=== PATIENT | female | born 1980 | race Caucasian/White ===

== ENCOUNTER → 2016-12-17 | Outpatient (CLI) | payer MEDICARE, OTHER | LOC: HPND 11:00 | PROVIDERS: ATTEND Obstetrics & Gynecology | DX: O09.522 Supervision of elderly multigravida, second trimester (principal); O99.352 Diseases of the nervous system complicating pregnancy, second trimester | CPT/HCPCS: 76805 ==

== ENCOUNTER 2017-02-28 22:08 | Emergency (ER) | payer MEDICARE, MEDICAID ==
[2017-02-28] MEDS ORDERED: LACTATED RINGER'S 1000 ML INJ 1,000 ML IV SCH (22:49)
--- NOTE | 2017-02-28 22:58 | PD ---
HPI Chief Complaint spotting Date Seen: Feb 28, 2017 Time Seen: 22:51 Travel History International Travel<30 Days: No Contact w/Intl Traveler<30Days: No Known Affected Area: No History of Present Illness HPI 36y/o @ 34.0 wks. She has limited PNC at [facility] (not seen in over 2 months). She presents for evaluation of spotting. She states that she had sex 3 days ago and experienced red blood like a period. Over the past 3 days she only needed a total of 2 pads and it turned to brown spotting. She states that tonight she started cramping. No LOF or ctx. +FM. Weeks Gestation: 34 Para: 1 : 3 History Past Medical History Narrative Medical scoliosis compressed spinal disc fibromyalgia Obstetric History Obstetric History x1 TAB x1 Past Surgical History Narrative Surgical breast augmentation Family History Family History: Negative Social History Alcohol Use: No Tobacco Use: Yes (occasional) Substance Abuse: Yes (occasional MJ) Allergies-Medications (Allergen,Severity, Reaction): Coded Allergies: codeine (Unverified Adverse Reaction, Intermediate, ABD CRAMPING, 12/06/16) Home Meds No Active Prescriptions or Reported Meds Review of Systems Except as stated in HPI: all other systems reviewed are Neg Physical Exam Narrative GENERAL: Well-nourished, well-developed patient. SKIN: Warm and dry. HEAD: Normocephalic and atraumatic. EYES: No scleral icterus. No injection or drainage. ENT: No nasal drainage noted. Mucous membranes pink. Airway patent. ABDOMEN/GI: Abdomen soft, non-tender EXTREMITIES: No cyanosis or edema. NEUROLOGICAL: Awake and alert. Motor and sensory grossly within normal limits. FHT's: 140s, +accels, no decels, moderate variability, reactive TOCO: occasional ctx with background irritability CERVIX: 3/50/-3 Data Data Vital Signs Reviewed: Yes Orders Orders Vital Signs (Adult) .ON ADMISSION (02/28/17 22:49) ^ Labor Status (02/28/17 22:49) Urinalysis - C+S If Indicated (02/28/17 22:49) ^ Non Stress Test (02/28/17 22:49) Lactated Ringer's 1000 Ml Inj (Lr 1000 M (02/28/17 22:49) Ob/Psych Drug Screen, Urine (02/28/17 22:49) MDM Plan 36y/o @ 34.0wks with post coital spotting. -- cvx 3cm multiparous -- small amt of brown old blood on glove -- toco irritable with some ctx -- IVF bolus, UA, UDS Dispo: Diagnosis Diagnosis: Primary Impression: 34 weeks gestation of Additional Impressions: Spotting affecting in third trimester Cramping affecting , antepartum AMA (advanced maternal age) multigravida 35+ Seizure disorder during Scoliosis Fibromyalgia Scripts No Active Prescriptions or Reported Meds Carola Del Rio MD Feb 28, 2017 22:58
[2017-02-28 23:31] LABS: BLOOD, URINE NEG (NEG); COMMENT (UR) CULT NOT INDICATED; CULTURE IF INDICATED CULT NOT INDICATED; GLUCOSE,URINE NEG (NEG); KETONE, URINE NEG (NEG); MUCUS URINE FEW /lpf (OCC); NITRITE,URINE NEG (NEG); SQUAMOUS EPITHELIAL CELL URINE <1 /hpf (0-5); URINE COLOR LIGHT-YELLOW (YELLW/STRAW)
[2017-02-28 23:45] VITALS: RESP 18
[2017-03-08 12:13] LABS: BATH SALTS (MDPV) UR NEG (NEG); ECSTASY (MDMA) UR NEG (NEG); HEROIN (6-ACETYLMORPHINE) UR NEG (NEG); K2 SPICE UR NEG (NEG); OBGABAPENTIN UR NEG (NEG); OBMETHADONE UR NEG (NEG); PHENCYCLIDINE URINE NEG (NEG)
[2017-03-08 12:14] LABS: OBHYDROMORPHONE U NEG (NEG)
== END 2017-03-01 00:02 | disposition home or self-care (01) ==
LOC: HOBED 22:08
DX: O26.853 Spotting complicating pregnancy, third trimester (principal); O26.893 Other specified pregnancy related conditions, third trimester; R10.9 Unspecified abdominal pain; O09.523 Supervision of elderly multigravida, third trimester; O99.89 Other specified diseases and conditions complicating pregnancy, childbirth and the puerperium; G40.909 Epilepsy, unspecified, not intractable, without status epilepticus; M41.9 Scoliosis, unspecified; M79.7 Fibromyalgia; O99.333 Smoking (tobacco) complicating pregnancy, third trimester; Z3A.34 34 weeks gestation of pregnancy
CPT/HCPCS: 80307; 81001; 96360; 99284; G0481; J7120

== ENCOUNTER 2017-03-30 04:51 | Inpatient (IN) | payer MEDICARE, MEDICAID ==
[2017-03-30] VITALS (29 sets, daily range): BP systolic 84–157; BP diastolic 57–113; PULSE 59–108; RESP 18–20; TEMP 97.7–98.2
[~2017-03-30] VITALS: Ht 165.1 cm; Wt 59.0 kg
--- NOTE | 2017-03-30 06:37 | PD ---
HPI Chief Complaint Leaking fluid, contractions Date Seen: Mar 30, 2017 Time Seen: 06:31 Travel History International Travel<30 Days: No Contact w/Intl Traveler<30Days: No Known Affected Area: No History of Present Illness HPI 36-year-old 2 para 1 at 38+ weeks gestation by 20 week ultrasound with an EDC of April 11. She reports leaking fluid since about 3:30 this morning. She notes increasing contraction activity. History Past Medical History Narrative Medical Seizure disorder for which she uses Keppra. She has not taken this for 3 weeks. She reports her last grand mal seizure 1 year ago. Chronic pain for which she uses lorazepam, baclofen, Fioricet, hydrocodone Obstetric History Obstetric History 1 prior 36 week vaginal delivery Past Surgical History Narrative Surgical Breast augmentation Family History Family History: Negative Social History Alcohol Use: No Tobacco Use: Yes (one cigarette per day) Substance Abuse: No Allergies-Medications (Allergen,Severity, Reaction): Coded Allergies: codeine (Unverified Adverse Reaction, Intermediate, ABD CRAMPING, 12/06/16) Home Meds No Active Prescriptions or Reported Meds Review of Systems Except as stated in HPI: all other systems reviewed are Neg Physical Exam Narrative GENERAL: Well-nourished, well-developed patient. SKIN: Warm and dry. HEAD: Normocephalic and atraumatic. EYES: No scleral icterus. No injection or drainage. ENT: No nasal drainage noted. Mucous membranes pink. Airway patent. NECK: Supple, trachea midline. No JVD. CARDIOVASCULAR: Regular rate and rhythm without murmurs, gallops, or rubs. RESPIRATORY: Breath sounds equal bilaterally. No accessory muscle use. ABDOMEN/GI: Abdomen soft, non-tender, bowel sounds present, no rebound, no guarding Gravid to [-] weeks size Fundal Height: [36-] GENITOURINARY: External Genitalia: intact and normal in appearance BUS glands: [-Negative] Cervix: [-] Dilatation: [3-] Effacement: [50-] Station: [-Minus 3] Presentation: [Vertex-] Membranes: [ ruptured] Uterine Contractions: [Mild irregular-] FHT's: Category: [-1] Baseline: [-] Reactive: [-] Variability: [-] Decels: [-] EXTREMITIES: No cyanosis or edema. BACK: Nontender without obvious deformity. No CVA tenderness. NEUROLOGICAL: Awake and alert. Motor and sensory grossly within normal limits. Five out of 5 muscle strength in all muscle groups. Normal speech. Data Data Vital Signs Reviewed: Yes Orders Orders Ob (2e) Additional Admit Info (03/30/17 05:24) MDM Medical Record Reviewed: Yes Narrative Course / MDM Assessment: 36-year-old at 38 weeks by midtrimester ultrasound with spontaneous rupture membranes, opioid dependence, minimal care Plan: labs Admit for labor management Scripts No Active Prescriptions or Reported Meds Jimenez Pagan MD Mar 30, 2017 06:37
[2017-03-30] MEDS ORDERED: LACTATED RINGER'S 1000 ML INJ 1,000 ML IV PRN (06:38)
--- NOTE | 2017-03-30 06:44 | HHI.HP ---
History & Physical H&P Patient Name: Anju Rivera Unit Number: [id number] Date of : 1980 Patient Status: Admitted Inpatient Attending Doctor: Jimenez Pagan MD HPI HPI Chief Complaint Leaking fluid, contractions Date Seen: Mar 30, 2017 Time Seen: 06:31 Travel History International Travel<30 Days: No Contact w/Intl Traveler<30Days: No Known Affected Area: No History of Present Illness HPI 36-year-old 2 para 1 at 38+ weeks gestation by 20 week ultrasound with an EDC of April 11. She reports leaking fluid since about 3:30 this morning. She notes increasing contraction activity. History (Limited) History Past Medical History Narrative Medical Seizure disorder for which she uses Keppra. She has not taken this for 3 weeks. She reports her last grand mal seizure 1 year ago. Chronic pain for which she uses lorazepam, baclofen, Fioricet, hydrocodone Obstetric History Obstetric History 1 prior 36 week vaginal delivery Past Surgical History Narrative Surgical Breast augmentation Family History Family History: Negative Social History Alcohol Use: No Tobacco Use: Yes (one cigarette per day) Substance Abuse: No Allergies-Medications Allergies-Medications (Allergen,Severity, Reaction): Coded Allergies: codeine (Unverified Adverse Reaction, Intermediate, ABD CRAMPING, 12/06/16) Home Meds No Active Prescriptions or Reported Meds ROS Review of Systems Except as stated in HPI: all other systems reviewed are Neg Physical Exam Physical Exam Narrative GENERAL: Well-nourished, well-developed patient. SKIN: Warm and dry. HEAD: Normocephalic and atraumatic. EYES: No scleral icterus. No injection or drainage. ENT: No nasal drainage noted. Mucous membranes pink. Airway patent. NECK: Supple, trachea midline. No JVD. CARDIOVASCULAR: Regular rate and rhythm without murmurs, gallops, or rubs. RESPIRATORY: Breath sounds equal bilaterally. No accessory muscle use. ABDOMEN/GI: Abdomen soft, non-tender, bowel sounds present, no rebound, no guarding Gravid to [-] weeks size Fundal Height: [36-] GENITOURINARY: External Genitalia: intact and normal in appearance BUS glands: [-Negative] Cervix: [-] Dilatation: [3-] Effacement: [50-] Station: [-Minus 3] Presentation: [Vertex-] Membranes: [ ruptured] Uterine Contractions: [Mild irregular-] FHT's: Category: [-1] Baseline: [-] Reactive: [-] Variability: [-] Decels: [-] EXTREMITIES: No cyanosis or edema. BACK: Nontender without obvious deformity. No CVA tenderness. NEUROLOGICAL: Awake and alert. Motor and sensory grossly within normal limits. Five out of 5 muscle strength in all muscle groups. Normal speech. Data Data Data Vital Signs Reviewed: Yes Orders Orders Ob (2e) Additional Admit Info (03/30/17 05:24) MDM MDM Medical Record Reviewed: Yes Narrative Course / MDM Assessment: 36-year-old at 38 weeks by midtrimester ultrasound with spontaneous rupture membranes, opioid dependence, minimal care Plan: labs Admit for labor management Scripts No Active Prescriptions or Reported Meds Jimenez Pagan MD Mar 30, 2017 06:37 Jimenez Pagan MD Mar 30, 2017 06:44
[2017-03-30] MEDS ORDERED: LIDOCAINE HCL 1% 50 ML VIAL I-DERMAL PRN (06:45)
[2017-03-30] MEDS ORDERED: OXYTOCIN 30 UNITS-500ML PREMIX 500 ML IV ONE (06:45)
[2017-03-30] MEDS ORDERED: ONDANSETRON HCL 4 MG/2 ML VIAL IV PUSH PRN (06:45)
[2017-03-30] MEDS ORDERED: CITRIC ACID-SODIUM CITRATE LIQ 30 ML UDC PO SCH (06:45)
[2017-03-30] MEDS ORDERED: LIDOCAINE HCL 1% 50 ML VIAL INFIL PRN (06:45)
[2017-03-30] MEDS ORDERED: SODIUM CHLORID 0.9% 500 ML INJ 500 ML IV PRN (06:45)
[2017-03-30] MEDS ORDERED: MINERAL OIL 10 ML VIAL TOPICAL PRN (06:45)
[2017-03-30] MEDS ORDERED: SODIUM CHLOR 0.9% 1000 ML INJ 1,000 ML IV PRN (06:58)
[2017-03-30 07:02] LABS: AUTOMATED NEUTROPHIL # 4.3 TH/MM3 (1.8-7.7); BASOPHIL % 0.2 % (0.0-2.0); EOSINOPHIL # 0.1 TH/MM3 (0-0.4); EOSINOPHIL % 1.7 % (0.0-4.0); HEMATOCRIT 32.2 % (35.0-46.0); HEMOGLOBIN 11.2 GM/DL (11.6-15.3); LYMPH % 26.3 % (9.0-44.0); LYMPHOCYTE # 1.8 TH/MM3 (1.0-4.8); MEAN CELL VOLUME 87.3 FL (80.0-100.0); MEAN CORPUSCULAR HEMOGLOBIN 30.4 PG (27.0-34.0); MEAN CORPUSCULAR HGB CONC 34.8 % (32.0-36.0); MEAN PLATELET VOLUME 6.8 FL (7.0-11.0); MONO % 8.4 % (0.0-8.0); MONOCYTE # 0.6 TH/MM3 (0-0.9); NEUT % 63.4 % (16.0-70.0); PLATELET COUNT 252 TH/MM3 (150-450); RED BLOOD COUNT 3.69 MIL/MM3 (4.00-5.30); RED CELL DISTRIBUTION WIDTH 14.1 % (11.6-17.2); WHITE BLOOD COUNT 6.7 TH/MM3 (4.0-11.0)
[2017-03-30] MEDS ORDERED: [UNRECOGNIZED DRUG - OTHER] PO (07:27)
[2017-03-30] MEDS ORDERED: LEVE500 PO (07:29)
[2017-03-30] MEDS ORDERED: BACL10TA PO (07:29)
[2017-03-30] MEDS ORDERED: BUTA1CAP PO (07:29)
[2017-03-30] MEDS ORDERED: LORA0.5T PO (07:32)
[2017-03-30] MEDS ORDERED: ZANT150T2 PO (07:32)
[2017-03-30] MEDS ORDERED: HYDR-3583 PO (07:33)
[2017-03-30 07:40] LABS: BILIRUBIN, URINE NEG (NEG); BLOOD, URINE MOD (NEG); GLUCOSE,URINE NEG (NEG); KETONE, URINE NEG (NEG); MUCUS URINE FEW /lpf (OCC); NITRITE,URINE NEG (NEG); SQUAMOUS EPITHELIAL CELL URINE 6 /hpf (0-5); URINE COLOR YELLOW (YELLW/STRAW); URINE LEUKOCYTE ESTERASE SMALL (NEG)
[2017-03-30] MEDS: LACTATED RINGER'S 1000 ML INJ 1,000 ML IV SCH ×3 (08:50→21:16)
[2017-03-30] MEDS ORDERED: fentaNYL 2MCG-BUPIV 0.125% INJ 100 ML ONE (10:08)
[2017-03-30] MEDS ORDERED: ePHEDrine/NS 25 MG/5 ML SYRINGE ONE (10:09)
[2017-03-30] MEDS ORDERED: WITCH HAZEL 50%/GLYCERIN 12.5% 40 PAD JAR TOPICAL PRN (11:45)
[2017-03-30] MEDS ORDERED: OXYTOCIN 30 UNITS-500ML PREMIX 500 ML IV SCH (11:45)
[2017-03-30] MEDS ORDERED: ALUMINUM/MAGNESIUM/SIMETH 30 ML CUP PO PRN (11:45)
--- NOTE | 2017-03-30 11:46 | PD.OB.DELI ---
Weeks gestation: 38 Pt started active labor?: Yes Medical induction of labor?: No Artificial rupture of membrane: No Anesthesia: Epidural Episiotomy: None Vaginal Delivery: Normal, Spontaneous Presentation: Occiput anterior Nuchal Cord: None Delayed cord clamping (45 sec): Yes Infant: Female Delivery date: Mar 30, 2017 Delivery time: 11:35 One Minute : 9 Five Minute : 9 Weight: pending Placenta: Spontaneous delivery, Intact, 3 vessel cord Laceration: Episiotomy Estimated blood loss: 150cc Carola Del Rio MD Mar 30, 2017 11:46
[2017-03-30] MEDS: IBUPROFEN 800 MG TAB PO PRN ×2 (12:46→21:28)
[2017-03-30] MEDS ORDERED: fentaNYL 2MCG-BUPIV 0.125% 100 ML EPIDURAL SCH (13:00)
[2017-03-30] MEDS ORDERED: ePHEDrine/NS 25 MG/5 ML SYRINGE IV PUSH PRN (13:00)
[2017-03-30] MEDS ORDERED: DO NOT ADMINISTER ANTICOAGULANTS PRN (13:00)
[2017-03-30] MEDS ORDERED: NO SYSTEM NARCOTICS PRN (13:00)
[2017-03-30] MEDS ORDERED: DIPHTH/TETANUS/ACEL PERTUSSIS (BOOSTER) 0.5 ML VIAL/PFS IM ONE (16:00)
[2017-03-30] MEDS ORDERED: MEASLES, MUMPS, RUBELLA VACCINE 0.5 ML VIAL SQ ONE (16:00)
[2017-03-30] MEDS ORDERED: ZOLPIDEM TARTRATE 5 MG TAB PO PRN (21:00)
[2017-03-30] MEDS: ACETAMINOPHEN 325 MG TAB PO PRN (21:27)
[2017-03-31] MEDS: LACTATED RINGER'S 1000 ML INJ 1,000 ML IV SCH ×2 (02:59→15:01)
[2017-03-31] MEDS: ACETAMINOPHEN 325 MG TAB PO PRN ×2 (05:39→16:45)
[2017-03-31] MEDS: IBUPROFEN 800 MG TAB PO PRN ×2 (05:39→15:02)
--- NOTE | 2017-03-31 07:37 | HHI.OB ---
Subjective Post Day: 1 Remarks Patient seen and examined this morning. AFVSS overnight. day #1. Patient reports some abdominal cramping, states her pain is tolerable. Decreased lochia. Denies dysuria. No breast tenderness. No nausea or vomiting. Endorses flatus. No issues voiding. Ambulating well. Denies fevers, calf pain, shortness of breath, or cough. She otherwise has no other complaints or concerns this morning. Objective Vitals/I&O Vital Signs Date Time Temp Pulse Resp B/P (MAP) Pulse Ox O2 Delivery O2 Flow Rate FiO2 03/30/17 18:58 98.0 88 20 141/83 (102) 03/30/17 12:45 66 138/89 (105) 03/30/17 12:30 71 123/88 (100) 03/30/17 12:10 82 03/30/17 12:05 59 130/76 (94) 03/30/17 12:02 73 125/72 (89) 03/30/17 12:00 98.2 18 03/30/17 11:57 71 122/63 (82) 03/30/17 11:11 61 127/57 (80) 03/30/17 11:05 83 129/85 (100) 03/30/17 11:05 85 03/30/17 11:00 108 03/30/17 11:00 75 137/96 (110) 03/30/17 10:56 87 130/81 (97) 03/30/17 10:55 86 03/30/17 10:51 87 84/73 (77) 03/30/17 10:50 89 03/30/17 10:45 84 126/80 (95) 03/30/17 10:45 90 03/30/17 10:40 88 140/88 (105) 03/30/17 10:40 97 03/30/17 10:36 80 112/91 (98) 03/30/17 10:35 74 03/30/17 10:30 72 126/83 (97) 03/30/17 10:30 72 03/30/17 10:25 66 124/70 (88) 03/30/17 10:25 68 03/30/17 10:22 75 129/70 (89) 03/30/17 10:20 100 149/87 (107) 03/30/17 10:20 85 03/30/17 10:19 107 157/105 (122) 03/30/17 10:18 154/113 (127) 03/30/17 10:18 100 03/30/17 10:15 93 03/30/17 10:07 65 137/87 (104) 03/30/17 08:15 97.7 18 03/30/17 08:08 66 132/83 (99) Objective Remarks GENERAL: Well-nourished, well-developed patient. CARDIOVASCULAR: Regular rate and rhythm without murmurs, gallops, or rubs. RESPIRATORY: Breath sounds equal bilaterally. No accessory muscle use. ABDOMEN/GI: Abdomen soft, non-tender. Fundus: Firm, non-tender at umbilicus. GENITOURINARY: Light to moderate bleeding. EXTREMITIES: No cyanosis or edema, non-tender, without signs of DVT. Medications and IVs Current Medications Medications (Trade) Dose Ordered Sig/[place] Route Start Time Stop Time Status Last Admin Lactated Ringer's 1,000 ml @ 125 mls/hr Q8H IV 03/30/17 06:38 03/30/17 08:50 Lactated Ringer's 1,000 ml @ 3,000 mls/hr Q20M PRN IV 03/30/17 06:38 Sodium Chloride 1,000 ml @ 100 mls/hr Q10H PRN IV 03/30/17 06:58 (Xylocaine 1% Inj (50 ml)) 0.1 ml UNSCH X1 PRN I-DERMAL 03/30/17 06:45 04/02/17 06:44 (Bicitra Liq) 30 ml RE[employer] SHEET PO 03/30/17 06:45 04/03/17 06:44 (Zofran Inj) 4 mg Q6H PRN IV PUSH 03/30/17 06:45 (fentaNYL INJ) 50 mcg Q1H PRN IV PUSH 03/30/17 06:45 (fentaNYL INJ) 100 mcg Q1H PRN IV PUSH 03/30/17 06:45 03/30/17 08:51 (Xylocaine 1% Inj (50 ml)) 10 ml UNSCH X1 PRN INFIL 03/30/17 06:45 04/01/17 06:44 (Muri-Lube Oil) 10 ml UNSCH PRN TOPICAL 03/30/17 06:45 (Tylenol) 650 mg Q4H PRN PO 03/30/17 11:45 03/31/17 05:39 (Motrin) 800 mg Q8H PRN PO 03/30/17 11:45 03/31/17 05:39 (Tucks Pads) 1 applic QID PRN TOPICAL 03/30/17 11:45 (Ambien) 5 mg HS PRN PO 03/30/17 21:00 (Mag-Al Plus Susp Liq) 15 ml Q8H PRN PO 03/30/17 11:45 Miscellaneous Information No systemic narcotics to be given except... UNSCH PRN .XX 03/30/17 13:00 03/31/17 12:59 Miscellaneous Information DO NOT ADMINISTER ANY ANTICOAGUL... UNSCH PRN .XX 03/30/17 13:00 03/31/17 12:59 Fentanyl/ Bupivacaine HCl 100 ml @ 0 mls/hr TITRATE EPIDURAL 03/30/17 13:00 (ePHEDrine/NS 25 MG/5 ML SYR) 10 mg UNSCH PRN IV PUSH 03/30/17 13:00 03/31/17 12:59 Assessment/Plan Assessment and Plan 36 year old now PPD#1. 1. Care - AFVSS - Encouraged OOB, as tolerated - Motrin prn pain - Advised pelvic rest x 6 weeks - Contraception: Discussed with patient this AM, patient elected to receive Depo -Provera IM - Will f/u with OB provider within 6 weeks [facility] Hospitalist Fabiano Hdz MD R2 Mar 31, 2017 07:37
[2017-03-31 08:00] VITALS: BP 121/84; PULSE 68; RESP 20; TEMP 96.1; O2SAT 0
--- NOTE | 2017-03-31 08:46 | HHI.DCPOC ---
Discharge Care Plan Diagnosis: (1) care following vaginal delivery Report Symptoms to Your Doctor -Temperature above 100.5 degrees -Redness, of incision or excessive or foul smelling drainage -Unusual pain or calf pain -Increased vaginal bleeding -Painful or difficulty urinating -Feelings of extreme sadness or anxiety after 2 weeks Goals to Promote Your Health * To maintain your health at the optimal level, follow up with your OB provider within 6 weeks after hospital discharge. Directions to Meet Your Goals Take your medications as prescribed Follow your dietary instruction Follow activity as directed Ensure plenty of rest for recovery Drink fluids for hydration Keep your appointments as scheduled Take your immunizations and boosters as scheduled If your symptoms worsen call your PCP, if no PCP go to Urgent Care Center or Emergency Room Smoking is Dangerous to Your Health. Avoid second hand smoke Call the 24-hour crisis hotline for domestic abuse at Fabiano Hdz MD R2 Mar 31, 2017 08:46
[2017-03-31] MEDS ORDERED: medroxyPROGESTERone ACETATE SUSP 150 MG/ML SYRINGE IM ONE (09:00)
[2017-03-31 19:45] VITALS: BP 132/89; PULSE 82; RESP 18; TEMP 97.6
[2017-04-01] MEDS: IBUPROFEN 800 MG TAB PO PRN ×2 (03:43→11:54)
[2017-04-01] MEDS: LACTATED RINGER'S 1000 ML INJ 1,000 ML IV SCH (08:12)
--- NOTE | 2017-04-01 08:17 | HHI.OB ---
Subjective Post Day: 2 Remarks Patient is a 36-year-old delivered at 38 weeks and 2 days. Patient is day 2 after spontaneous vaginal delivery. Patient's pain is well- controlled. Patient reports minimal bleeding. Patient reports eating and drinking without any nausea or vomiting. Patient has passed gas and has had two bowel movements. Patient denies chest pain and shortness of breath. Patient has been ambulating; she denies lower extremity pain. Patient has decided to bottle- feed. (Estephania Valdez MD R1) Remarks Patient seen and evaluated with resident under direct supervision, agree with assessment and plan. (Jimenez Pagan MD) Objective Vitals/I&O Vital Signs Date Time Temp Pulse Resp B/P (MAP) Pulse Ox O2 Delivery O2 Flow Rate FiO2 03/31/17 19:45 97.6 82 18 132/89 (103) Objective Remarks GENERAL: Well-nourished, well-developed patient. CARDIOVASCULAR: Regular rate and rhythm without murmurs, gallops, or rubs. RESPIRATORY: Breath sounds equal bilaterally. No accessory muscle use. ABDOMEN/GI: Abdomen soft, minimally tender. Fundus: Firm, minimally tender at umbilicus. GENITOURINARY: Light to moderate bleeding. EXTREMITIES: No cyanosis or edema, non-tender, without signs of DVT. Medications and IVs Current Medications Medications (Trade) Dose Ordered Sig/[place] Route Start Time Stop Time Status Last Admin Lactated Ringer's 1,000 ml @ 125 mls/hr Q8H IV 03/30/17 06:38 03/30/17 08:50 Lactated Ringer's 1,000 ml @ 3,000 mls/hr Q20M PRN IV 03/30/17 06:38 Sodium Chloride 1,000 ml @ 100 mls/hr Q10H PRN IV 03/30/17 06:58 (Xylocaine 1% Inj (50 ml)) 0.1 ml UNSCH X1 PRN I-DERMAL 03/30/17 06:45 04/02/17 06:44 (Bicitra Liq) 30 ml [employer] PO 03/30/17 06:45 04/03/17 06:44 (Zofran Inj) 4 mg Q6H PRN IV PUSH 03/30/17 06:45 (fentaNYL INJ) 50 mcg Q1H PRN IV PUSH 03/30/17 06:45 (fentaNYL INJ) 100 mcg Q1H PRN IV PUSH 03/30/17 06:45 03/30/17 08:51 (Muri-Lube Oil) 10 ml UNSCH PRN TOPICAL 03/30/17 06:45 (Tylenol) 650 mg Q4H PRN PO 03/30/17 11:45 03/31/17 16:45 (Motrin) 800 mg Q8H PRN PO 03/30/17 11:45 04/01/17 03:43 (Tucks Pads) 1 applic QID PRN TOPICAL 03/30/17 11:45 (Ambien) 5 mg HS PRN PO 03/30/17 21:00 (Mag-Al Plus Susp Liq) 15 ml Q8H PRN PO 03/30/17 11:45 Fentanyl/ Bupivacaine HCl 100 ml @ 0 mls/hr TITRATE EPIDURAL 03/30/17 13:00 (Estephania Valdez MD R1) Assessment/Plan Assessment and Plan Patient is a 36-year-old delivered at 38 weeks and 2 days. Patient is day 2 after spontaneous vaginal delivery. * Continue routine care. * Motrin and Percocet when necessary for pain. * Encourage OOB. * Pelvic rest for 6 weeks will need follow-up appointment at that time. * Contraception: Depo-Provera - received yesterday. * Anticipate discharge tomorrow [facility] OB Hospitalist (Estephania Valdez MD R1) Estephania Valdez MD R1 Apr 01, 2017 08:17 Jimenez Pagan MD Apr 01, 2017 09:01
[2017-04-01] MEDS ORDERED: IBUP1TAB7 PO (08:54)
[2017-04-01] MEDS: ACETAMINOPHEN 325 MG TAB PO PRN (11:54)
[2017-04-01 12:08] LABS: HEPATITIS A AB IGM NEGATIVE (NEGATIVE); HEPATITIS B CORE AB IGM NEGATIVE (NEGATIVE); HEPATITIS B SURFACE ANTIGEN NEGATIVE (NEGATIVE); HEPATITIS C AB IgG NEGATIVE (NEGATIVE)
== END 2017-04-01 12:16 | disposition home or self-care (01) | DRG 775 ==
LOC: HOBED 04:51 → H2EA 05:25 → H1EA 13:08
PROVIDERS: ADMIT Obstetrics & Gynecology; ATTEND Obstetrics & Gynecology
PROC: 10E0XZZ Delivery of Products of Conception, External Approach (ICD-10-PCS; principal; 2017-03-30)
PROC: 0W8NXZZ Division of Female Perineum, External Approach (ICD-10-PCS; 2017-03-30)
DX: O99.354 Diseases of the nervous system complicating childbirth (principal); F11.20 Opioid dependence, uncomplicated; G40.409 Other generalized epilepsy and epileptic syndromes, not intractable, without status epilepticus; O99.334 Smoking (tobacco) complicating childbirth; O99.324 Drug use complicating childbirth; Z37.0 Single live birth; Z3A.38 38 weeks gestation of pregnancy; Z88.5 Allergy status to narcotic agent
CPT/HCPCS: 59025; 80074; 80307; 81001; 84112; 85025; 86592; 86703; 86900; 86901; 87081; 87150; 90715; J1050; J2590; J3010; J7120